=== PATIENT | male | born 1985 | race Caucasian/White ===

== ENCOUNTER 2025-03-12 16:28 | Emergency (ER) | payer OTHER ==
[~2025-03-12] VITALS: Ht 182.9 cm; Wt 129.6 kg
[2025-03-12 16:32] VITALS: BP 144/91; TEMP 96.8; O2SAT 97
== END 2025-03-12 17:47 | disposition home or self-care (01) ==
LOC: M ED 16:28
DX: K42.9 Umbilical hernia without obstruction or gangrene (principal); F17.200 Nicotine dependence, unspecified, uncomplicated